=== PATIENT | male | born 1960 | race Caucasian/White ===

== ENCOUNTER 2022-12-13 23:16 | Emergency (ER) | payer BC ==
[2022-12-14] MEDS ORDERED: Lidocaine 1% PF 5 ML VIAL ONE (01:44)
[2022-12-14] MEDS ORDERED: Bacitracin 1 PK ONE (01:44)
== END 2022-12-14 02:22 | disposition home or self-care (01) ==
LOC: ERS 23:16
DX: S01.112A Laceration without foreign body of left eyelid and periocular area, initial encounter (principal); S09.90XA Unspecified injury of head, initial encounter; W18.30XA Fall on same level, unspecified, initial encounter
CPT/HCPCS: 12013